=== PATIENT | male | born 1965 | race Two or more races ===

== ENCOUNTER → 2025-03-24 | Emergency (ER) | payer OTHER ==
[~2025-03-24] VITALS: Ht 160 cm; Wt 77.1 kg
[~2025-03-24] MED LIST: ACETAMINOPHEN 500 MG GEL..CAP PO STA; METFORMIN HCL500 M3 PO; POTASSIUM CHLORIDE 8 MEQ TABLET PO STA
[2025-03-24 20:40] LABS: COVID-19 AG NEGATIVE (NEGATIVE)
[2025-03-24 20:47] LABS: INFLUENZA A AG NEGATIVE (NEGATIVE)
[2025-03-24 21:25] LABS: ALBUMIN 3.6 gm/dL (3.4-5.0); BILIRUBIN TOTAL 0.74 mg/dL (0.3-1.2); CALCIUM 8.6 mg/dL (8.5-10.1); CREATININE SERUM 1.18 mg/dL (0.70-1.30); GFR 62.97; GLOBULINA 3.9 G/DL (2.4-3.5); TOTAL PROTEIN 7.5 gm/dL (6.4-8.2)
[2025-03-24 21:26] LABS: EOS # 0.38 (0.04-0.54); EOS % 9.2 % (0.7-7.0); HEMATOCRIT 38.3 % (40.1-51.0); HEMOGLOBIN 12.7 g/dL (13.7-17.5); LYMPH # 1.58 (1.18-3.74); LYMPH % 38.4 % (19.3-53.1); MEAN CORPUSCULAR HEMOGLOBIN 26.3 pg (25.6-32.2); MONO # 0.35 (0.24-0.82); MONO % 8.5 % (4.7-12.5); NEUT # 1.74 (1.56-6.13); NEUT % 42.4 % (34.0-71.1); PLATELET COUNT 175 K/uL (163-369); RED BLOOD COUNT 4.83 M/uL (4.63-6.08); RED CELL DISTRIBUTION WIDTH 13.1 % (11.6-14.4)
[2025-03-24 21:27] LABS: POTASSIUM 2.98 mEq/L (3.5-5.1)
== END | disposition home or self-care (01) ==
LOC: ER 17:29
DX: B34.9 Viral infection, unspecified (principal); R51.9 Headache, unspecified; I10 Essential (primary) hypertension; E11.9 Type 2 diabetes mellitus without complications; Z79.84 Long term (current) use of oral hypoglycemic drugs; Z20.822 Contact with and (suspected) exposure to COVID-19